=== PATIENT | female | born 2000 | race African-American/Black ===

== ENCOUNTER 2023-12-04 00:28 | Inpatient (IN) | payer BC ==
[2023-12-04] MEDS ORDERED: Misoprostol 200 MCG Tab PO PRN (01:00)
[2023-12-04] MEDS ORDERED: Lidocaine 1% 50 ML MDV INJECT PRN (01:00)
[2023-12-04] MEDS ORDERED: Sodium Chloride 0.9% 20 ML SDV IV PRN (01:00)
[2023-12-04] MEDS ORDERED: Sodium Chloride 0.9% 10 ML Syringe FLUSH PRN (01:00)
[2023-12-04] MEDS ORDERED: Water For Irrigation,Sterile 1,000 ML Container IRR PRN (01:00)
[2023-12-04] MEDS ORDERED: Sodium Chloride 0.9% 2.5 ML Syringe FLUSH PRN (01:00)
[2023-12-04] MEDS ORDERED: Tranexamic Acid IN NACL,ISO-OS 1,000 MG in Premix Bag 1 BAG IV PRN (01:00)
[2023-12-04] MEDS ORDERED: Carboprost Tromethamine 250 MCG/1 mL Vial IM PRN (01:00)
[2023-12-04] MEDS ORDERED: Butorphanol 2 MG/ML SDV IVPUSH PRN (01:00)
[2023-12-04] MEDS ORDERED: Methylergonovine 0.2 MG/1 ML Amp IM PRN (01:00)
[2023-12-04] MEDS: Lactated Ringers 1,000 ML IV SCH (01:06)
[2023-12-04] MEDS: Ampicillin 2 GM in Sodium Chloride 0.9% 100 ML IV ONE (01:25)
[2023-12-04 01:53] LABS: HEMATOCRIT 37.1 % (37.0-47.0); MEAN CORPUSCULAR HEMOGLOBIN 29.2 pg (28.0-32.0); MEAN CORPUSCULAR HGB CONC 32.3 g/dL (32.0-36.0); MEAN CORPUSCULAR VOLUME 90.3 fL (83.0-99.0); MEAN PLATELET VOLUME 11.7 fL (9.4-12.3); PLATELET COUNT,PLT 148 K/uL (150-400); RED BLOOD CELL COUNT 4.11 M/uL (4.10-5.30); WHITE BLOOD CELL COUNT,WBC 11.62 K/uL (3.9-11.3)
[2023-12-04] MEDS ORDERED: Phenylephrine HCl In 0.9% NaCl 1 MG/10 ML Syringe IVPUSH PRN (02:07)
[2023-12-04] MEDS ORDERED: ePHEDrine 50 MG/ML SDV IVPUSH PRN (02:07)
[2023-12-04] MEDS ORDERED: Ropivacaine HCl/PF 400 MG in Premix Bag 1 BAG EPIDUR SCH (02:15)
[2023-12-04] MEDS ORDERED: dexmedeTOMIDine HCl 200 MCG/2 ML SDV EPIDUR SCH (02:15)
[2023-12-04] MEDS: Ampicillin 1 GM in Sodium Chloride 0.9% 50 ML IV SCH (05:27)
[2023-12-04] MEDS: Ondansetron 4 MG/2 ML SDV IVPUSH PRN (07:52)
[2023-12-04] MEDS: Oxytocin/0.9 % Sodium Chloride 30 UNIT/500 ML BAG IV SCH (10:15)
[2023-12-04] MEDS ORDERED: Lanolin 100% Cream 7 GM Tube TOP PRN (11:54)
[2023-12-04] MEDS ORDERED: Docusate Sodium 100 MG Cap PO PRN (11:54)
[2023-12-04] MEDS ORDERED: oxyCODONE 5 MG Tab PO PRN (11:54)
[2023-12-04] MEDS ORDERED: Acetaminophen 500 MG Tab PO PRN (11:54)
[2023-12-04] MEDS: Witch Hazel Medicated Pads 40/Jar TOP PRN (14:24)
[2023-12-04] MEDS: Benzocaine/Menthol 20%-0.5% Spray 78 GM Cannister TOP PRN (14:24)
[2023-12-04] MEDS: Ibuprofen 800 MG Tab PO PRN (15:11)
[2023-12-05 06:25] LABS: HEMATOCRIT 33.5 % (37.0-47.0); HEMOGLOBIN 10.9 g/dL (12.0-16.0)
== END 2023-12-05 15:30 | disposition home or self-care (01) | DRG 560 ==
LOC: MW.OB 00:28 → MW.OBCHECK 00:28 → MW.OB 11:09 → OBSVTOIN 11:54 → MW.OB 22:09
PROVIDERS: ADMIT Obstetrics & Gynecology; ATTEND Obstetrics & Gynecology
PROC: 10E0XZZ Delivery of Products of Conception, External Approach (ICD-10-PCS; principal; 2023-12-04)
PROC: 0KQM0ZZ Repair Perineum Muscle, Open Approach (ICD-10-PCS; 2023-12-04)
DX: O99.824 Streptococcus B carrier state complicating childbirth (principal); Z37.0 Single live birth; Z3A.39 39 weeks gestation of pregnancy; O77.0 Labor and delivery complicated by meconium in amniotic fluid; O70.1 Second degree perineal laceration during delivery
CPT/HCPCS: 01967; 36415; 51702; 59025; 59409; 85014; 85018; 85027; 86592; 86850; 86900; 86901; A9270-GY; J0290; J2405; J2590; J3490; J7120

== ENCOUNTER 2024-05-02 17:20 | Emergency (ER) | payer BC ==
[2024-05-02 19:13] LABS: BASOPHILS ABSOLUTE AUTO 0.02 K/uL (0.00-0.20); BASOPHILS PERCENT AUTO 0.5 % (0.0-1.0); EOSINOPHILS ABSOLUTE AUTO 0.02 K/uL (0.00-0.45); EOSINOPHILS PERCENT AUTO 0.5 % (0.0-6.0); HEMATOCRIT 40.5 % (37.0-47.0); IMMATURE GRAN ABSOLUTE AUTO 0.01 K/uL (0.00-0.05); IMMATURE GRAN PERCENT AUTO 0.2 % (0.0-0.4); LYMPHOCYTES ABSOLUTE AUTO 2.14 K/uL (1.00-4.80); LYMPHOCYTES PERCENT AUTO 48.5 % (24.0-44.0); MEAN CORPUSCULAR HEMOGLOBIN 28.3 pg (28.0-32.0); MEAN CORPUSCULAR HGB CONC 32.1 g/dL (32.0-36.0); MEAN CORPUSCULAR VOLUME 88.2 fL (83.0-99.0); MEAN PLATELET VOLUME 10.1 fL (9.4-12.3); MONOCYTES ABSOLUTE AUTO 0.24 K/uL (0.00-0.80); MONOCYTES PERCENT AUTO 5.4 % (0.0-8.0); NEUTROPHILS ABSOLUTE AUTO 1.98 K/uL (1.80-7.70); NEUTROPHILS PERCENT AUTO 44.9 % (41.0-71.0); PLATELET COUNT,PLT 257 K/uL (150-400); RED BLOOD CELL COUNT 4.59 M/uL (4.10-5.30); WHITE BLOOD CELL COUNT,WBC 4.41 K/uL (3.9-11.3)
[2024-05-02 19:23] LABS: APPEARANCE,URINE CLEAR; BILIRUBIN,URINE NEGATIVE (NEGATIVE); COLOR,URINE YELLOW; GLUCOSE,URINE NEGATIVE (NEGATIVE); KETONES,URINE TRACE mg/dL (NEGATIVE); OCCULT BLOOD,URINE NEGATIVE (NEGATIVE); PROTEIN,URINE TRACE mg/dL (NEGATIVE); UROBILINOGEN,URINE 0.2 EU/dL (<2.0)
[2024-05-02 19:24] LABS: LEUKOCYTE ESTERASE,URINE NEGATIVE (NEGATIVE); NITRITE,URINE NEGATIVE (NEGATIVE)
[2024-05-02 19:39] LABS: AMPHETAMINES SCREEN, URINE NEGATIVE (CUTOFF=500); BARBITURATE SCREEN,URINE NEGATIVE (CUTOFF=200); BENZODIAZEPINES SCREEN,URINE NEGATIVE (CUTOFF=150); BUPRENORPHINE SCREEN,URINE NEGATIVE (CUTOFF=10); METHADONE SCREEN, URINE NEGATIVE (CUTOFF=200); METHAMPHETAMINES SCREEN, URINE NEGATIVE (CUTOFF=500); OXYCODONE SCREEN,URINE NEGATIVE (CUT0FF=100); PCP SCREEN,URINE NEGATIVE (CUTOFF=25); THC SCREEN,URINE 20 NG/ML NEGATIVE (CUTOFF=50)
[2024-05-02 19:41] LABS: BACTERIA,URINE 1+ (NEGATIVE); EPITHELIAL CELLS,URINE MODERATE (NONE-FEW); RBC,URINE 0-1 (0-2/HPF)
[2024-05-02 19:42] LABS: MUCUS,URINE MANY (NONE-MOD)
[2024-05-02 19:54] LABS: A/G RATIO 0.9 (0.9-1.6); ACETAMINOPHEN <2.0 ug/mL; ALANINE AMINOTRANSFERASE,ALT 15 IU/L (14-63); ALBUMIN 3.8 g/dL (3.4-5.0); ALKALINE PHOSPHATASE 63 U/L (46-116); ASPARTATE AMNIOTRANSFERASE,AST 7 IU/L (15-37); BILIRUBIN TOTAL 0.8 mg/dL (0.2-1.0); BLOOD UREA NITROGEN,BUN 8 mg/dL (7.0-18.0); CALCIUM 9.4 mg/dL (8.5-10.1); CARBON DIOXIDE,CO2 27.4 mmol/L (21.0-32.0); CHLORIDE,CL 104 mmol/L (98-107); GLUCOSE RANDOM 92 mg/dL (74-106); MAGNESIUM 1.9 mg/dL (1.8-2.4); POTASSIUM,K 3.8 mmol/L (3.5-5.1); PROTEIN TOTAL,TP 7.9 g/dL (6.4-8.2); SALICYLATE 0.2 mg/dL (0.0-20.0); SODIUM,NA 141 mmol/L (136-145); T3 FREE 2.72 pg/mL (2.18-3.98); T4 FREE 1.04 ng/dL (0.76-1.46); TSH ULTRASENSITIVE 3.21 uIU/mL (0.36-3.74)
[2024-05-02 19:58] LABS: ESTIMATED GFR 81 mL/min (>60); ETHANOL BLOOD MEDICAL < 3.0 mg/dL
== END 2024-05-02 20:14 | disposition home or self-care (01) ==
LOC: MW.ED 17:20
DX: F32.A Depression, unspecified (principal)
CPT/HCPCS: 36415; 80053; 80143; 80179; 80305-QW; 80307; 81001; 83735; 84439; 84443; 84481; 85025; 99284